=== PATIENT | female | born 1945 | race Caucasian/White ===

== ENCOUNTER 2024-12-14 02:23 | Inpatient (IN) | payer OTHER ==
[~2024-12-14] VITALS: Ht 157.5 cm; Wt 59.9 kg
[2024-12-14 04:25] LABS: BASOPHILS % 0.4 % (0.0-2.0); EOSINOPHILS % 1.5 % (0.0-5.0); HEMATOCRIT. 26.6 % (36.0-48.0); HEMOGLOBIN. 8.2 g/dL (12.0-16.0); LYMPHOCYTES % 15.7 % (20.0-50.0); MEAN PLATELET VOLUME 8.0 fl (7.4-10.4); MONOCYTES % 6.9 % (2.0-8.0); NEUTROPHILS % 75.5 % (40.0-76.0); PLATELET 313 x1000/uL (130-400); RED BLOOD CELL COUNT 3.71 mill/uL (4.2-5.4); RED CELL DISTRIBUTION WIDTH 19.3 % (11.6-14.6)
[2024-12-14 04:38] LABS: CREATININE 0.9 mg/dL (0.6-1.0); UREA NITROGEN BLOOD 15 mg/dL (9-23)
[2024-12-14 04:39] LABS: ETHANOL BLOOD < 10 mg/dL (<10)
[2024-12-14] MEDS: SODIUM CHLORIDE 0.9% 1,000 ML IV ONE (04:45)
[2024-12-14 08:00] VITALS: BP 148/75; PULSE 65; RESP 19; TEMP 36.4; O2SAT 100
[2024-12-14] MEDS ORDERED: ONDANSETRON HCL 4MG/2ML INJ IV PRN (10:00)
[2024-12-14] MEDS ORDERED: ACETAMINOPHEN 325MG TABLET PO PRN (10:00)
[2024-12-14 10:04] VITALS: BP 148/75; PULSE 69; RESP 19; TEMP 36.418
[2024-12-14 12:00] VITALS: BP 131/71; PULSE 67; RESP 18; TEMP 36.5; O2SAT 100
[2024-12-14] MEDS ORDERED: POTASSIUM CHLORIDE 20MEQ TABLET SR PO SCH (12:15)
[2024-12-14 14:37] LABS: CLARITY URINE CLEAR (CLEAR); COLOR URINE YELLOW (YELLOW); GLUCOSE URINE NEGATIVE (NEGATIVE); KETONES URINE NEGATIVE (NEGATIVE); LEUKOCYTE ESTERASE URINE NEGATIVE (NEGATIVE); NITRITE URINE NEGATIVE (NEGATIVE); OCCULT BLOOD URINE NEGATIVE (NEGATIVE); PH URINE 6.0 (4.5-8.0); PROTEIN URINE 1+ (NEGATIVE); SPECIFIC GRAVITY URINE 1.011 (1.005-1.030); UROBILINOGEN URINE 1.0 E.U./dL (0.2-1.0)
[2024-12-14 14:55] LABS: SQUAMOUS EPITHELIAL CELL URINE RARE /lpf (RARE/1+)
[2024-12-14 14:56] LABS: *AMPHETAMINES SCREEN URINE NEGATIVE (NEGATIVE); *BARBITURATES SCREEN URINE NEGATIVE (NEGATIVE); *BENZODIAZEPINES SCREEN URINE NEGATIVE (NEGATIVE); *COCAINE SCREEN URINE NEGATIVE (NEGATIVE); METHADONE URINE SCREEN NEGATIVE (NEGATIVE); MUCUS URINE TRACE /lpf (< = 2+); OPIATES URINE SCREEN NEGATIVE (NEGATIVE); PHENCYCLIDINE URINE SCREEN NEGATIVE (NEGATIVE); RBC URINE 0-2 /hpf (0-2); WBC URINE 0-2 /hpf (0-2)
[2024-12-14 14:57] LABS: BACTERIA URINE NONE SEEN; CANNABINOID URINE SCREEN NEGATIVE (NEGATIVE); ECSTASY MDMA SCREEN URINE NEGATIVE (NEGATIVE)
[2024-12-14] MEDS: POTASSIUM CHLORIDE 20MEQ TABLET SR PO SCH (15:55)
[2024-12-14 16:00] VITALS: BP 148/78; PULSE 67; RESP 19; TEMP 36.6; O2SAT 97
[2024-12-14 20:00] VITALS: BP 130/60; PULSE 65; RESP 20; TEMP 36.7; O2SAT 99
[2024-12-15] VITALS: BP 132/74; PULSE 64; RESP 17; TEMP 36.5; O2SAT 100
[2024-12-15 12:28] VITALS: BP 141/69; PULSE 73; RESP 17; TEMP 36.9; O2SAT 95
[2024-12-15 16:56] VITALS: BP 152/83; PULSE 71; RESP 19; TEMP 37.5; O2SAT 100
[2024-12-15 20:00] VITALS: BP 142/72; PULSE 84; RESP 18; TEMP 36.3; O2SAT 100
[2024-12-15 22:10] LABS: BASOPHILS % 0.5 % (0.0-2.0); EOSINOPHILS % 1.2 % (0.0-5.0); HEMATOCRIT. 29.6 % (36.0-48.0); HEMOGLOBIN. 8.9 g/dL (12.0-16.0); LYMPHOCYTES % 14.4 % (20.0-50.0); MEAN PLATELET VOLUME 8.9 fl (7.4-10.4); MONOCYTES % 7.8 % (2.0-8.0); NEUTROPHILS % 76.1 % (40.0-76.0); PLATELET 331 x1000/uL (130-400); RED BLOOD CELL COUNT 4.06 mill/uL (4.2-5.4); RED CELL DISTRIBUTION WIDTH 20.2 % (11.6-14.6)
[2024-12-15 22:20] LABS: INR 0.9
[2024-12-15 22:22] LABS: ADD RBC MORPHOLOGY YES
[2024-12-15 22:30] LABS: CREATININE 0.8 mg/dL (0.6-1.0)
[2024-12-15 22:31] LABS: UREA NITROGEN BLOOD 19 mg/dL (9-23)
[2024-12-15 22:32] LABS: ASPARTATE AMINOTRANSFERASE 20 IU/L (<34)
[2024-12-15 22:33] LABS: BILIRUBIN DIRECT < 0.1 mg/dL (<=3.0); BILIRUBIN TOTAL 0.4 mg/dL (0.1-1.0); PHOSPHORUS 3.6 mg/dL (2.5-4.9); PROTEIN TOTAL 6.4 g/dL (6.0-8.3)
[2024-12-15 22:34] LABS: FOLIC ACID (FOLATE) SERUM 15.60 ng/mL (>5.38)
[2024-12-15 22:35] LABS: VITAMIN B12 SERUM 1129 pg/mL (211-911)
[2024-12-15 22:37] LABS: PLATELET ESTIMATE NORMAL
[2024-12-16] VITALS: BP 143/81; PULSE 77; RESP 18; TEMP 36.7; O2SAT 96
[2024-12-16 04:00] VITALS: BP 147/78; PULSE 73; RESP 16; TEMP 36.6; O2SAT 97
[2024-12-16 07:18] LABS: BASOPHILS % 0.5 % (0.0-2.0); EOSINOPHILS % 2.2 % (0.0-5.0); HEMATOCRIT. 27.2 % (36.0-48.0); HEMOGLOBIN. 8.4 g/dL (12.0-16.0); LYMPHOCYTES % 17.8 % (20.0-50.0); MEAN PLATELET VOLUME 8.9 fl (7.4-10.4); MONOCYTES % 8.3 % (2.0-8.0); NEUTROPHILS % 71.2 % (40.0-76.0); PLATELET 290 x1000/uL (130-400); RED BLOOD CELL COUNT 3.76 mill/uL (4.2-5.4); RED CELL DISTRIBUTION WIDTH 19.6 % (11.6-14.6)
[2024-12-16 07:24] LABS: CREATININE 0.8 mg/dL (0.6-1.0); UREA NITROGEN BLOOD 14 mg/dL (9-23)
[2024-12-16 09:29] VITALS: BP 124/64; PULSE 62; TEMP 97; O2SAT 99
== END 2024-12-16 11:26 | disposition home or self-care (01) | DRG 425 ==
LOC: ER 02:23 → 8WST 04:29 → EDBEDREQ 04:44 → EDBEDREQTM 04:44 → ENRESERV 05:18
PROVIDERS: ADMIT Internal Medicine; ATTEND Internal Medicine
DX: E87.6 Hypokalemia (principal); G93.40 Encephalopathy, unspecified; F03.90 Unspecified dementia, unspecified severity, without behavioral disturbance, psychotic disturbance, mood disturbance, and anxiety; D64.9 Anemia, unspecified; D72.819 Decreased white blood cell count, unspecified; K44.9 Diaphragmatic hernia without obstruction or gangrene; I71.9 Aortic aneurysm of unspecified site, without rupture; I10 Essential (primary) hypertension
CPT/HCPCS: 36415; 71045; 80048; 80076; 80305; 80307; 80320; 80329; 81003; 82140; 82607; 82728; 82746; 83540; 83550; 83735; 84100; 85025; 93005; 99285; J7030; G0480